=== PATIENT | female | born 1985 | race Caucasian/White ===

== ENCOUNTER 2018-06-26 18:23 | Emergency (ER) | payer OTHER ==
[~2018-06-26] VITALS: Ht 165.1 cm; Wt 72.6 kg
[~2018-06-26 18:23] MED LIST: BACTRIM DS TAB1 EACH PO; CIPROFLOXACIN500 M1 PO; FLAGYL500 MG PO; IBUPROFEN 800800 MG PO; KEFLEX500 MG PO; NOHOMEMEDICATIONS; NORCO 5-325 TA1 EACH PO; PHENERGAN 25 MG25 M1 PO; SPRINTEC1 EACH PO; TOPAMAX50 MG PO; ULTRAM 50MG TAB50 MG PO
[2018-06-26] MEDS ORDERED: TESSALON PERLE100 MG PO (19:31)
[2018-06-26] MEDS ORDERED: PREDNISONE 20 M20 MG PO (19:31)
[2018-06-26] MEDS ORDERED: CEFDINIR300 MG PO (19:31)
[2018-06-26 20:30] VITALS: BP 182/121
== END 2018-06-26 20:31 | disposition home or self-care (01) ==
LOC: ER 18:23
DX: H66.91 Otitis media, unspecified, right ear (principal); R05 Cough; Z88.6 Allergy status to analgesic agent

== ENCOUNTER 2018-08-27 14:00 | Emergency (ER) | payer OTHER ==
[~2018-08-27] VITALS: Ht 162.6 cm; Wt 81.7 kg
--- NOTE | ~2018-08-27 | EKG ---
[address] [address] ELECTROCARDIOGRAM REPORT Name: TORY SUTHERLAND [id number] Admission: 08/27/18 Attend Phys: Discharge: 08/27/18 Date of : 89 Report #: [id number] THIS REPORT FOR: //name// [facility] ED Test Date: 2018-08-27 Test Time: 14:21:00 Pat Name: TORY SUTHERLAND Department: Room: Gender: F Health Safety Instructor: AHMET : 1985 Requested By: Lisa Vidal Order Number: [id number] MD: Joe Gunn Measurements Intervals [place] Rate: 96 P: 73 GA: 125 QRS: 53 QRSD: 86 T: 46 QT: 369 QTc: 467 Interpretive Statements Sinus rhythm Normal tracing No previous ECG available for comparison Electronically Signed On 08-28-2018 7:52:10 OCCUPATIONAL HEALTH AND SAFETY OFFICER by Joe Gunn [email or web address] <ELECTRONICALLY SIGNED> By: Joe Gunn MD, [facility] 08/28/18 0752 1421 1421 Joe Gunn MD, FACC /EPI
[~2018-08-27 14:00] MED LIST changes: +CEFDINIR300 MG PO; +PREDNISONE 20 M20 MG PO; +TESSALON PERLE100 MG PO
[2018-08-27 14:38] LABS: ABSOLUTE NEUTROPHILS 8.4 thou/uL (1.4-8.2); BASOPHILS 0.9 % (0.0-2.0); EOSINOPHILS 2.5 % (0.0-3.0); HEMATOCRIT 43.8 % (37.0-47.0); HEMOGLOBIN 14.9 gm/dL (12.0-15.0); LYMPHOCYTES 18.6 % (24.0-44.0); MCH 29.9 pg (26.0-34.0); MCHC 34.1 g/dL (28.0-37.0); MCV 87.6 fL (80.0-100.0); MONOCYTES 4.1 % (1.0-8.0); PLATELET COUNT 352 thou/uL (150-400); POLYS 73.9 % (36.0-66.0); WBC 11.4 thou/uL (4.0-11.0)
[2018-08-27 14:50] LABS: ANION GAP 9 mmol/L (7-16); BUN 15 mg/dL (7-18); CALCIUM 9.3 mg/dL (8.5-10.1); CHLORIDE 103 mmol/L (98-107); CO2 26 mmol/L (21-32); CREATININE 0.9 mg/dL (0.6-1.0); GLUCOSE 120 mg/dL (74-106); SODIUM 138 mmol/L (136-145)
[2018-08-27 14:58] LABS: ALBUMIN 3.7 g/dL (3.4-5.0); SGOT 16 U/L (15-37); SGPT 23 U/L (30-65); TOTAL BILIRUBIN 0.2 mg/dL (<0.1-1.0); TOTAL PROTEIN 7.7 g/dL (6.4-8.2); TROPONIN-I <0.06 ng/mL (<0.06)
[2018-08-27 15:08] LABS: URINE BILIRUBIN NEGATIVE (Negative); URINE BLOOD 2+ (Negative); URINE CLARITY CLEAR; URINE COLOR YELLOW; URINE GLUCOSE-RANDOM* NEGATIVE (Negative); URINE KETONES NEGATIVE (Negative); URINE NITRITE-REFLEX NEGATIVE (Negative); URINE PROTEIN (DIPSTICK) NEGATIVE (Negative); URINE SPECIFIC GRAVITY 1.025 (1.005-1.035); URINE UROBILINOGEN 0.2 E.U./dl (0.2-1.0)
[2018-08-27 15:12] LABS: URINE LEUKOCYTES-REFLEX 1+ (Negative)
[2018-08-27 15:17] LABS: AMP/METHAMP Negative (Negative); BARBITURATES Negative (Negative); BENZODIAZEPINES Negative (Negative); COCAINE Negative (Negative); METHADONE Negative (Negative); OPIATES Negative (Negative); PCP Negative (Negative)
[2018-08-27 15:24] LABS: AMORPHOUS URATES Few /LPF (None Seen); BACTERIA-REFLEX None Seen /HPF (None Seen); CASTS None Seen /LPF (None Seen); MUCUS 0-3 Light strn/LPF (None Seen); SQUAMOUS 4-10 Moderate /LPF (0-3); URINE RBC 3-10 Few /HPF (0-2); URINE WBC-REFLEX 0-5 Rare /HPF (0-5)
[2018-08-27] MEDS ORDERED: FLAGYL500 M1 PO (15:49)
[2018-08-27] MEDS ORDERED: CLONIDINE0.1 PO (15:49)
[2018-08-27 16:19] VITALS: BP 151/100
== END 2018-08-27 16:19 | disposition home or self-care (01) ==
LOC: ER 14:00
PROVIDERS: Nurse Practitioner Family
DX: A59.9 Trichomoniasis, unspecified (principal); I16.0 Hypertensive urgency; F17.210 Nicotine dependence, cigarettes, uncomplicated; Z88.6 Allergy status to analgesic agent; Z90.89 Acquired absence of other organs

== ENCOUNTER 2019-01-03 15:32 | Emergency (ER) | payer OTHER ==
[~2019-01-03] VITALS: Ht 165.1 cm; Wt 90.7 kg
[~2019-01-03 15:32] MED LIST changes: +CLONIDINE0.1 PO; +FLAGYL500 M1 PO
[2019-01-03 16:33] LABS: URINE BILIRUBIN NEGATIVE (Negative); URINE BLOOD NEGATIVE (Negative); URINE CLARITY CLEAR; URINE COLOR YELLOW; URINE GLUCOSE-RANDOM* NEGATIVE (Negative); URINE KETONES NEGATIVE (Negative); URINE LEUKOCYTES-REFLEX NEGATIVE (Negative); URINE NITRITE-REFLEX NEGATIVE (Negative); URINE PROTEIN (DIPSTICK) NEGATIVE (Negative); URINE SPECIFIC GRAVITY >= 1.030 (1.005-1.035); URINE UROBILINOGEN 0.2 E.U./dl (0.2-1.0)
[2019-01-03] MEDS ORDERED: LISINOPRIL10 MG PO (17:35)
[2019-01-03 17:56] VITALS: BP 124/73
== END 2019-01-03 18:00 | disposition home or self-care (01) ==
LOC: ER 15:32
PROVIDERS: Nurse Practitioner Family
DX: I10 Essential (primary) hypertension (principal); E66.01 Morbid (severe) obesity due to excess calories; F17.210 Nicotine dependence, cigarettes, uncomplicated; Z68.33 Body mass index [BMI] 33.0-33.9, adult; Z88.6 Allergy status to analgesic agent; Z98.890 Other specified postprocedural states

== ENCOUNTER 2019-02-08 08:04 | Emergency (ER) | payer OTHER ==
[~2019-02-08] VITALS: Ht 162.6 cm; Wt 86.2 kg
[~2019-02-08 08:04] MED LIST changes: +LISINOPRIL10 MG PO
[2019-02-08] MEDS ORDERED: TRAMADOL 50 MG50 MG PO (09:19)
[2019-02-08] MEDS ORDERED: NAPROSYN500 MG PO (09:19)
[2019-02-08] MEDS ORDERED: NORFLEX100 MG PO (09:19)
[2019-02-08 09:33] VITALS: BP 120/70
== END 2019-02-08 09:39 | disposition home or self-care (01) ==
LOC: ER 08:04
DX: S39.012A Strain of muscle, fascia and tendon of lower back, initial encounter (principal); M54.41 Lumbago with sciatica, right side; I10 Essential (primary) hypertension; Z88.6 Allergy status to analgesic agent; E66.01 Morbid (severe) obesity due to excess calories; F17.210 Nicotine dependence, cigarettes, uncomplicated; Z68.32 Body mass index [BMI] 32.0-32.9, adult; Z98.890 Other specified postprocedural states; X58.XXXA Exposure to other specified factors, initial encounter; Y93.89 Activity, other specified; Y92.89 Other specified places as the place of occurrence of the external cause; Y99.8 Other external cause status

== ENCOUNTER 2021-10-04 08:40 | Emergency (ER) | payer OTHER ==
[~2021-10-04] VITALS: Ht 162.6 cm; Wt 81.7 kg
[~2021-10-04 08:40] MED LIST changes: +NAPROSYN500 MG PO; +NORFLEX100 MG PO; +TRAMADOL 50 MG50 MG PO
[2021-10-04] MEDS ORDERED: COREG12.5 MG PO (08:53)
[2021-10-04 09:21] LABS: URINE BILIRUBIN NEGATIVE (Negative); URINE BLOOD NEGATIVE (Negative); URINE CLARITY CLOUDY; URINE COLOR YELLOW; URINE GLUCOSE-RANDOM* NEGATIVE (Negative); URINE KETONES NEGATIVE (Negative); URINE LEUKOCYTES-REFLEX NEGATIVE (Negative); URINE NITRITE-REFLEX NEGATIVE (Negative); URINE PROTEIN (DIPSTICK) NEGATIVE (Negative); URINE UROBILINOGEN 0.2 E.U./dl (0.2-1.0)
[2021-10-04 09:27] LABS: ABSOLUTE NEUTROPHILS 8.4 thou/uL (1.4-8.2); BASOPHILS 0.6 % (0.0-2.0); EOSINOPHILS 3.8 % (0.0-3.0); HEMATOCRIT 41.7 % (37.0-47.0); LYMPHOCYTES 19.3 % (24.0-44.0); MCH 29.1 pg (26.0-34.0); MCHC 33.6 g/dL (28.0-37.0); MCV 86.6 fL (80.0-100.0); MONOCYTES 6.3 % (1.0-8.0); PLATELET COUNT 418 thou/uL (150-400); RBC 4.81 mil/uL (4.20-5.00); RDW 13.7 % (10.5-14.5)
[2021-10-04 11:22] LABS: POTASSIUM 3.3 mmol/L (3.5-5.1)
[2021-10-04 11:23] VITALS: BP 180/108
[2021-10-04 11:33] LABS: ALBUMIN 3.6 g/dL (3.4-5.0); TOTAL BILIRUBIN 0.1 mg/dL (0.2-1.0); TOTAL PROTEIN 7.3 g/dL (6.4-8.2)
[2021-10-04] MEDS ORDERED: ZESTRIL10 MG PO (12:13)
--- NOTE | 2021-10-04 15:33 | EKG ---
[address] [place] [address] ELECTROCARDIOGRAM REPORT Name: TORY SUTHERLAND Room #: DEP 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 : 1985 Requested By: Howard Kruger Order Number: [id number] : Dony Hubbard Measurements Intervals [place] Rate: 96 P: 63 [place]: 151 QRS: 42 QRSD: 87 T: 53 QT: 368 QTc: 465 Interpretive Statements Sinus rhythm Minimal ST depression, lateral leads Compared to ECG 08/27/2018 14:21:00 ST (T wave) deviation now present Electronically Signed On 10-04-2021 15:32:40 SYSTEM SOFTWARE DEVELOPER by Dony Hubbard [email or web address] <ELECTRONICALLY SIGNED> By: Dony Hubbard MD, MERGED WITH [facility] 10/04/21 1532 0857 6 Dony Hubbard MD, FACC /EPI
== END 2021-10-04 12:25 | disposition home or self-care (01) ==
LOC: ER 08:40
PROVIDERS: Student in an Organized Health Care Education/Training Program
DX: M25.512 Pain in left shoulder (principal); Z20.822 Contact with and (suspected) exposure to COVID-19; I10 Essential (primary) hypertension; E66.01 Morbid (severe) obesity due to excess calories; F17.210 Nicotine dependence, cigarettes, uncomplicated; Z90.89 Acquired absence of other organs; Z68.30 Body mass index [BMI] 30.0-30.9, adult; Z79.899 Other long term (current) drug therapy; Z88.5 Allergy status to narcotic agent; Z88.1 Allergy status to other antibiotic agents